=== PATIENT | male | born 1985 | race Caucasian/White ===

== ENCOUNTER → 2017-05-16 | Outpatient (CLI) | payer OTHER ==
--- NOTE | 2017-05-16 12:40 | RAD ---
Three-phase bone scan Indications: Left lower leg pain for 7 months. The patient is in the and runs 8-10 miles a day. Technique: After IV infusion of 25 mCi of technetium 99m MDP, three-phase bone scan of both lower legs was performed starting at the level of the mid femur on down. Comparison: No previous bone scan or radiographic study available. Findings: No hyperemia is seen. No abnormal blood pool accumulation is seen. On the left side, there is a focus of increased radiotracer activity involving the medial aspect of the proximal shaft of the left tibia and another focus of increased radiotracer activity seen involving the medial aspect of the distal shaft of the left tibia. There is a focus of activity involving the medial aspect of the distal metaphysis/epiphysis of the left tibia. No abnormal focus of activity is seen involving the right lower leg. IMPRESSION: Findings are consistent with 3 stress fractures of the left tibia.
== END | disposition home or self-care (01) ==
LOC: NM 09:36
PROVIDERS: ATTEND Family Medicine
DX: M84.362A Stress fracture, left tibia, initial encounter for fracture (principal); X58.XXXA Exposure to other specified factors, initial encounter; Y93.89 Activity, other specified; Y92.89 Other specified places as the place of occurrence of the external cause; Y99.8 Other external cause status
CPT/HCPCS: 78315; 96374; A9503